=== PATIENT | male | born 1945 | race Caucasian/White ===

== ENCOUNTER → 2016-08-06 | Outpatient (CLI) | payer OTHER ==
[~2016-08-06] MED LIST: ALDACTONE25 MG PO; ALLER-EASE180 MG PO; CLOTRIM ANTIFUN15 GM TP; CLOTRIMAZOLE10 MG MM; COMBIVENT RESPIM4 GM INH; COQ-10100 MG PO; COREG25 MG PO; DIFLUCAN100 MG PO; FLOMAX0.4 MG PO; FORTAMET1000 MG PO; GLUCOSAMINE-MS1 EAC2 PO; IBUPROFEN 200200 M1 PO; KLOR-CON 1010 MEQ PO; KRILL OIL 3001 EACH PO; LEVEMIR SUBQ; LIPITOR40 MG PO; MAGOX 400400 MG PO; NAPROSYN500 MG PO; NOVOLOG100 UNIT/M SUBQ; OMEPRAZOLE40 MG PO; PHENAZOPYRIDIN200 M2 PO; PROSCAR 5MG TABL5 MG PO; QUINAPRIL-HCTZ1 EAC1 PO; RESTORIL30 MG PO; SYMBICORT160 MCG/4. INH; TESTOSTERON100 MG/ML IM; TORSEMIDE5 MG PO; UNICOMPLEX M TA1 TA1 PO; VENTOLIN HFA 1818 GM INH; VITAMIN B12-FO1 EAC1 PO; VITAMIN D2000 UNIT PO; VITAMINC500 PO; XARELTO10 MG PO; XERALTO PO
== END ==
LOC: RAD 10:45
DX: R06.02 Shortness of breath (principal); R07.9 Chest pain, unspecified; R52 Pain, unspecified; R53.83 Other fatigue; R73.9 Hyperglycemia, unspecified

== ENCOUNTER → 2017-07-13 | Outpatient (CLI) | payer OTHER ==
[~2017-07-13] MED LIST changes: +ACCURETIC 20-11 EACH PO; +ALL DAY ALLERGY10 M3 PO; +CLOTRIMAZOLE 1%15 G1 TOP; +COREG12.5 MG PO; +CRANBERRY400 MG PO; +GLUCOSAMINE CH1 EAC2 PO; +HUMALOG100 UNIT/1 SUBQ; +IRON325 PO; +KRILL OIL 1,001 EAC1 PO; +LIVALO4 MG PO; +LOPERAMIDE 2 MG2 M1 PO; +MELATONIN 10 M1 EACH PO; +NEURONTIN 300300 M1 PO; +RESTASIS1 EACH OPHTHALMIC; +SIMETHICON CHEW80 M1 PO; +STIOLTO RESPIMAT4 GM INH; +VITAMIN B122500 MCG PO; +VITAMIN D2000 UNI1 PO; +VITAMIN D3400 UNIT PO; +XARELTO20 MG PO
== END ==
LOC: RAD 12:21
DX: J44.9 Chronic obstructive pulmonary disease, unspecified (principal)

== ENCOUNTER → 2017-08-18 | Outpatient (CLI) | payer OTHER ==
[~2017-08-18] VITALS: Ht 175.3 cm; Wt 145.2 kg
--- NOTE | ~2017-08-18 | P ---
[facility] [place] [address] [place] [address] PROCEDURE REPORT Name: JOSE ANGEL SEGUNDO Room #: REG [facility]#: [id number] Admission: 08/18/17 Attend Phys: Jarrett Mei MD Discharge: Date of : 49 Report #: [id number] THIS REPORT FOR: //name// CC: Jd Mei BRIEF HISTORY: The patient is a 72-year-old male who uses naproxen daily as well as omeprazole along with Xarelto. He has recently had black stools and his hemoglobin 8.5 with an MCV of 69. PREOPERATIVE DIAGNOSIS: Iron deficiency anemia. POSTOPERATIVE DIAGNOSIS: Moderate diffuse gastritis with mild nodular changes in the body of the stomach. MEDICATIONS: monitored anesthesia care. SPECIMENS: 1. Small-bowel biopsy, rule out celiac disease. 2. Biopsies of gastritis. ESTIMATED BLOOD LOSS: 3 mL. PROCEDURE: EGD with biopsy. FINDINGS: Prior to sedation, the procedure of discussed with the patient as well as potential risks, benefits, and complications. He indicates he understands and desires to proceed. With the patient in left lateral decubitus position, the Concept Inboxi video endoscope was inserted in the cervical esophagus under direct vision without difficulty. Examination of this organ through its entire length revealed normal esophageal mucosa down to the squamocolumnar junction. Squamocolumnar junction was inspected and noted to be unremarkable. There were no ulcers, erosions or mucosal abnormalities or bleeding lesions. Varices were not seen. A hiatus hernia was not seen. Scope was advanced in the stomach, was examined on end view as well as retroflexed views. There was a pattern of diffuse gastritis throughout the stomach, primarily erythema. However, in spite of his use of nonsteroidals, no ulcers or erosions were seen. No bleeding lesions were seen. Vascular ectasias were not seen. There was a nodular appearance of the mucosa in the body of the stomach, which was diffuse. Overall, the stomach had a completely benign appearance. Multiple biopsies were obtained. Upon retroflexion, no mass lesions were seen. The pylorus, duodenal bulb and postbulbar sweep were all inspected and within normal limits. Due to his [address] [address] PROCEDURE REPORT Name: JOSE ANGEL SEGUNDO Room #: REG [facility]#: [id number] Admission: 08/18/17 Attend Phys: Jarrett eMi MD Discharge: Date of : 49 Report #: [id number] anemia, multiple biopsies were obtained to the small bowel. At that point, the scope was slowly withdrawn and careful circumferential views confirmed the above findings. The patient tolerated the procedure well. CONDITION OF THE PATIENT UPON DISCHARGE: Following procedure, the patient drowsy and prepared for colonoscopy. INSTRUCTIONS TO THE PATIENT AND FAMILY AT THE TIME OF DISCHARGE: We will follow up on biopsies obtained today and make further recommendations regarding his anemia. He should continue his iron. We will proceed with colonoscopy at this time for further evaluation of his iron deficiency anemia. <ELECTRONICALLY SIGNED> By: Jarrett Mei MD 08/25/17 0741 1103 1402 Jarrett Mei MD /nt
--- NOTE | ~2017-08-18 | S ---
[facility] [address] [place] [address] SURGICAL PATH RPT PROCEDURE Name: JOSE ANGEL SEGUNDO Room #: REG [facility] M..#: [id number] Admission: 08/18/17 Date of : 49 Discharge: Report #: [id number] Path Case #: [id number] PATHOLOGY REPORT COLLECTION DATE: 08/18/2017 RECEIVED DATE: 08/18/2017 SUBMITTING PHYS: Dr. Jarrett Mei OTHER PHYS: Dr. Es Al SPECIMEN(S) RECEIVED: A.Bx of small bowel B.Bx of gastritis C.Polyp at proximal ascending colon * * * * * * * * * * * * FINAL DIAGNOSIS: A. Small bowel mucosa, small bowel rule out celiac iron deficiency anemia, endoscopic biopsy: - No diagnostic abnormalities present. - Negative for villous blunting or increase in intraepithelial lymphocytes. B. Gastric mucosa, gastritis, endoscopic biopsy: - Mild reactive gastropathy. - Negative for intestinal metaplasia or atrophy. - One fragment showing changes compatible with a fundic gland polyp. - Negative for Helicobacter pylori. C. Polyp, proximal ascending, endoscopic biopsy: - Tubular adenoma. - Negative for high-grade dysplasia. COMMENT: Well controlled Helicobacter pylori immunohistochemical stain performed on block B1 - negative (IUV:pit; 08/19/2017) PATHOLOGIST: Yusra Gordon M.D. REPORT ELECTRONICALLY SIGNED BY: Yusra Gordon M.D. DATE/TIME: 08/19/2017 13:24 * * * * * * * * * * * * GROSS PATHOLOGY: A. Received in formalin labeled "Jose Angel Segundo, small bowel BX rule out celiac iron deficiency anemia" and consists of 3 soft diaz tissue fragments each averaging 0.2 cm which are entirely submitted A1 B. Received in formalin labeled "Jose Angel Segundo, biopsy of gastritis" [address] [address] SURGICAL PATH RPT PROCEDURE Name: JOSE ANGEL SEGUNDO F Room #: REG [facility]#: [id number] Admission: 08/18/17 Date of : 49 Discharge: Report #: [id number] Path Case #: [id number] and consists of 5 soft diaz tissue fragments ranging in size from 0.1 cm-0.3 cm which are entirely submitted as B1. C. Received in formalin labeled "Jose Angel Segundo, polyp at proximal ascending colon" and consists of multiple diaz red mucosal biopsies aggregating to 0.7 x 0.5 x 0.3 cm which are entirely submitted as C1. (MONIE; 08/18/2017) CLINICAL HISTORY: Anemia, iron deficiency INITIAL CPT CODE(S): A; 22526 B; 11162, 46129 C; 71136 Professional services performed by [facility] at [address], [place] [address] Technical services performed by [facility] at [address] [place] [address], [address] [address]. [facility] [address] [place] [address] PHONE: [phone] DIRECTOR: Sanchez Cueva M.D. * * * END OF REPORT * * *
--- NOTE | ~2017-08-18 | P ---
[facility] [place] [address] [place] [address] PROCEDURE REPORT Name: JOSE ANGEL SEGUNDO Room #: REG [facility]#: [id number] Admission: 08/18/17 Attend Phys: Jarrett Mei MD Discharge: Date of : 49 Report #: [id number] THIS REPORT FOR: //name// CC: Jd Mei BRIEF HISTORY: The patient is a 72-year-old male with recent findings of iron deficiency anemia. He does take Xarelto. Last colonoscopy was 4-1/2 years ago. PREOPERATIVE DIAGNOSIS: Iron deficiency anemia. POSTOPERATIVE DIAGNOSES: 1. Flat polyp, proximal ascending colon. 2. Moderate sigmoid diverticulosis coli. 3. Internal hemorrhoids. MEDICATIONS: Deep sedation with propofol per anesthesia. SPECIMEN: Proximal ascending colon polyp. ESTIMATED BLOOD LOSS: 3 mL. PROCEDURE: Colonoscopy to cecum and ileocecal valve with cold snare polypectomy. FINDINGS: Prior to propofol sedation, procedure of colonoscopy was discussed with the patient as well as potential risks and its complications. He indicates he understands and desires to proceed. With the patient in left lateral decubitus position, digital examination was completed which revealed no abnormalities. Subsequently, the Yovigo video colonoscope was introduced in the rectum, advanced under direct vision to the cecum. Done with minimal difficulty. The cecum was identified by the ileocecal valve and appendiceal orifice. I was able to advance the scope to the mouth of the ileocecal valve, we could see a villous pattern, but to looping the scope, we could not deeply intubate the terminal ileum. At that point, the scope was slowly withdrawn and careful circumferential views were obtained. Examination of the colon revealed a flat 10-12 mm polyp over the fold in the proximal ascending colon. This was removed with several passes of the cold snare and removed in a piecemeal fashion. A total polypectomy was completed. Due to the size of the defect, 2 clips were placed without difficulty with good results. The scope was withdrawn through the remainder of the colon and was within normal limits, normal vascular pattern, normal light reflex. No additional abnormalities were noted until the sigmoid colon was reached, at which point [facility] [address] [place] [address] PROCEDURE REPORT Name: JOSE ANGEL SEGUNDO Room #: REG [facility].#: [id number] Admission: 08/18/17 Attend Phys: Jarrett Mei MD Discharge: Date of : 49 Report #: [id number] moderate sigmoid diverticular disease seen without endoscopic evidence of diverticulitis. Scope was withdrawn into the rectum. No abnormalities were seen. However, upon retroflexion, small hemorrhoids were seen. Scope was withdrawn. The patient tolerated the procedure well. CONDITION OF THE PATIENT UPON DISCHARGE: Following the procedure, the patient drowsy, aroused and conversant and will be discharged home when fully ambulatory. INSTRUCTIONS TO THE PATIENT AND FAMILY AT THE TIME OF DISCHARGE: We will follow up on the path report. Due to findings of a flat polyp and history of polyps, ideally he should return in 3 years for a high risk screening colonoscopy due to his history of polyps. However, the patient has multiple comorbidities including use of supplemental oxygen 24 hours a day. I would base recommendations on the patient's overall health status at that time. Last colonoscopy was 4-1/2 years ago. Withdrawal time from the cecum, after polypectomy was 13 minutes and 6 seconds. <ELECTRONICALLY SIGNED> By: Jarrett Mei MD 08/25/17 0741 1148 1906 Jarrett Mei MD /nt
== END | disposition home or self-care (01) ==
LOC: GI 09:32
DX: D12.2 Benign neoplasm of ascending colon (principal); K57.30 Diverticulosis of large intestine without perforation or abscess without bleeding; K64.8 Other hemorrhoids; K31.9 Disease of stomach and duodenum, unspecified; K29.70 Gastritis, unspecified, without bleeding; I10 Essential (primary) hypertension; E11.9 Type 2 diabetes mellitus without complications; E78.00 Pure hypercholesterolemia, unspecified; J43.9 Emphysema, unspecified; G47.33 Obstructive sleep apnea (adult) (pediatric); K21.9 Gastro-esophageal reflux disease without esophagitis; M19.90 Unspecified osteoarthritis, unspecified site; Z87.891 Personal history of nicotine dependence; Z79.4 Long term (current) use of insulin; Z85.51 Personal history of malignant neoplasm of bladder; Z86.718 Personal history of other venous thrombosis and embolism; Z88.8 Allergy status to other drugs, medicaments and biological substances; Z98.890 Other specified postprocedural states; Z79.899 Other long term (current) drug therapy
CPT/HCPCS: 62110; 62900

== ENCOUNTER 2019-06-21 11:56 | Inpatient (IN) | payer OTHER ==
[~2019-06-21] VITALS: Ht 177.8 cm; Wt 122.1 kg
[2019-06-21] VITALS (12 sets, daily range): BP systolic 99–140; BP diastolic 45–83
[2019-06-21 12:27] LABS: BE(vivo) 3.7 mmol/L (-2 to +3); HCO3 31.9 mmol/L (22.0-26.0); PCO2 68.5 mmHg (35.0-45.0); pH 7.286 (7.360-7.450); sO2 95.5 % (92.0-98.0)
[2019-06-21 12:41] LABS: ABSOLUTE NEUTROPHILS 6.8 thou/uL (1.4-8.2); BASOPHILS 0.9 % (0.0-2.0); EOSINOPHILS 1.6 % (0.0-3.0); HEMATOCRIT 36.6 % (42.0-52.0); HEMOGLOBIN 11.2 gm/dL (14.0-18.0); LYMPHOCYTES 5.5 % (24.0-44.0); MCH 25.7 pg (26.0-34.0); MCHC 30.6 g/dL (28.0-37.0); MCV 84.1 fL (80.0-100.0); MONOCYTES 4.4 % (1.0-8.0); PLATELET COUNT 202 thou/uL (150-400); POLYS 87.6 % (36.0-66.0); RBC 4.35 mil/uL (4.50-6.00); RDW 18.5 % (10.5-14.5); WBC 7.8 thou/uL (4.0-11.0)
[2019-06-21 12:51] LABS: ANION GAP 7 mmol/L (7-16); BUN 58 mg/dL (7-18); CHLORIDE 100 mmol/L (98-107); CO2 34 mmol/L (21-32); CREATININE 2.2 mg/dL (0.7-1.3); GLUCOSE 273 mg/dL (74-106); POTASSIUM 4.4 mmol/L (3.5-5.1); SODIUM 141 mmol/L (136-145)
[2019-06-21 13:01] LABS: ALBUMIN 3.4 g/dL (3.4-5.0); SGOT 17 U/L (15-37); SGPT 19 U/L (30-65); TOTAL BILIRUBIN 0.8 mg/dL (<0.1-1.0); TOTAL PROTEIN 7.3 g/dL (6.4-8.2); TROPONIN-I <0.06 ng/mL (<0.06)
[2019-06-21 13:30] LABS: ANISOCYTOSIS 1+
[2019-06-21 13:30] LABS: HCO3 32.7 mmol/L (22.0-26.0); PCO2 65.7 mmHg (35.0-45.0); PO2 58.2 mmHg (80.0-100.0); pH 7.315 (7.360-7.450)
--- NOTE | 2019-06-21 16:19 | EKG ---
[facility] [place] [address] ELECTROCARDIOGRAM REPORT Name: JOSE ANGEL SEGUNDO Room #: 170-6 ADM IN M.R.#: [id number] Admission: 06/21/19 Attend Phys: Vishnu Graham MD Discharge: Date of : 49 Report #: [id number] THIS REPORT FOR: cc: Luis Alberto Morrison MD, Logan F. MD Couchonnal, Luis F. MD ~ THIS REPORT FOR: //name// [facility] ED Test Date: 2019-06-21 Test Time: 12:14:32 Pat Name: JOSE ANGEL SEGUNDO Department: Room: [facility] Gender: M Entry Level Sales Consultant: : 1945 Requested By: Monisha Cavazos Order Number: [id number] MD: Frandy Bains Measurements Intervals [place] Rate: 75 P: 57 AL: 186 QRS: 60 QRSD: 121 T: 157 QT: 381 QTc: 426 Interpretive Statements Sinus rhythm Probable left atrial enlargement Nonspecific intraventricular conduction delay Nonspecific T abnrm, anterolateral leads No previous ECG available for comparison Electronically Signed On 06-21-2019 16:18:15 HEALTH POLICY ANALYST by Frandy Bains [email or web address] <ELECTRONICALLY SIGNED> By: Frandy Bains MD 06/21/19 1618 1214 1214 Frandy Bains MD /EPI
--- NOTE | 2019-06-21 16:41 | NUR ---
REPORT CALLED TO ICU NURSE
--- NOTE | 2019-06-21 17:30 | NUR ---
73 Y/O MALE ADMITTED TO ICU ROOM 237 AT 1712 FROM THE ED VIA CART. STATOR PLATE WASHER PLACED ALONG WITH BP AND OE SAT MONITORING. PATIENT ASSESSED AND BATHED.
[2019-06-22] VITALS (15 sets, daily range): BP systolic 106–135; BP diastolic 48–91
[2019-06-22 00:06] LABS: GLYCOHEMOGLOBIN (HGB A1C) 7.9 % (4.8-5.6)
[2019-06-22 05:00] LABS: BE(vivo) 6.4 mmol/L (-2 to +3); HCO3 34.2 mmol/L (22.0-26.0); PO2 81.2 mmHg (80.0-100.0); pH 7.319 (7.360-7.450); sO2 94.7 % (92.0-98.0)
[2019-06-22 05:01] LABS: PCO2 68.1 mmHg (35.0-45.0)
[2019-06-22 06:53] LABS: ABSOLUTE NEUTROPHILS 6.2 thou/uL (1.4-8.2); BASOPHILS 0.2 % (0.0-2.0); HEMATOCRIT 36.2 % (42.0-52.0); LYMPHOCYTES 3.6 % (24.0-44.0); MCH 25.8 pg (26.0-34.0); MCHC 30.4 g/dL (28.0-37.0); MCV 84.9 fL (80.0-100.0); MONOCYTES 0.9 % (1.0-8.0); PLATELET COUNT 189 thou/uL (150-400); POLYS 95.3 % (36.0-66.0); RBC 4.27 mil/uL (4.50-6.00); RDW 18.8 % (10.5-14.5); WBC 6.5 thou/uL (4.0-11.0)
[2019-06-22 07:32] LABS: ALBUMIN 2.9 g/dL (3.4-5.0); ANION GAP 8 mmol/L (7-16); BUN 51 mg/dL (7-18); CALCIUM 8.8 mg/dL (8.5-10.1); CHLORIDE 102 mmol/L (98-107); CO2 36 mmol/L (21-32); CREATININE 1.7 mg/dL (0.7-1.3); GLUCOSE 236 mg/dL (74-106); MAGNESIUM 1.7 mg/dL (1.8-2.4); POTASSIUM 4.4 mmol/L (3.5-5.1); SGOT 13 U/L (15-37); SGPT 18 U/L (30-65); SODIUM 146 mmol/L (136-145); TOTAL BILIRUBIN 0.6 mg/dL (<0.1-1.0); TOTAL PROTEIN 6.8 g/dL (6.4-8.2); TROPONIN-I <0.06 ng/mL (<0.06)
--- NOTE | 2019-06-22 08:57 | NUR ---
RD consult received for diet education. Pt newly admitted, ICU setting for acute on chronic kidney injury, CHF. Extreme class III obesity with BMI 48. Large wt gain reported from 20-30 lb. On diuretic, also hx COPD with home O2, and dm. No diet ordered yet-recommend carb controlled, heart healthy. Will address any nutrition education needs at later date when pt more stable. Low nutrition risk otherwise.
[2019-06-22 09:22] LABS: ANISOCYTOSIS 2+; PLATELET ESTIMATE NORMAL
--- NOTE | 2019-06-22 10:40 | NUR ---
tried to see pt x 2, had resp MD in room and now getting echo. will cont following as needed for dc needs.
--- NOTE | 2019-06-22 12:22 | 2DMMODE ---
[facility] [place] [address] [place] [address] 2 D/M-MODE ECHOCARDIOGRAM Name: JOSE ANGEL SEGUNDO Room #: 237-P ADM IN M.R.#: [id number] Admission: 06/21/19 Attend Phys: Vishnu Graham MD Discharge: Date of : 49 Report #: [id number] THIS REPORT FOR: cc: Luis Alberto Morrison MD, Logan F. MD Lammoglia, Francisco J. MD ~ APPROVED REPORT Study performed: 06/22/2019 10:23:49 EXAM: Comprehensive 2D, Doppler, and color-flow Echocardiogram Patient Location: ICU Room #: 237 Status: routine BSA: 2.62 HR: 76 bpm BP: 112/52 mmHg Rhythm: NSR Other Information Study Quality: Adequate Indications Congestive Heart Failure COPD Diabetes Dyspnea Cardiomyopathy Hypertension/HDD 2D Dimensions RVDd: 52.27 mm IVSd: 9.50 (7-11mm) LVOT Diam: 24.11 (18-24mm) LVDd: 54.16 mm PWd: 7.81 (7-11mm) Ascending Ao: 36.40 (22-36mm) LVDs: 44.96 (25-40mm) Aortic Root: 30.95 mm IVC: 33.00 mm Volumes Left Atrial Volume (Systole) Single Plane 4CH: 82.00 mL Single Plane 2CH: 72.75 mL LA ESV Index: 32.00 mL/m2 Aortic Valve [facility] [address] [place] [address] 2 D/M-MODE ECHOCARDIOGRAM Name: JOSE ANGEL SEGUNDO Room #: 237-P [facility] IN M.R.#: [id number] Admission: 06/21/19 Attend Phys: Vishnu Graham MD Discharge: Date of : 49 Report #: [id number] AoV Peak Gerson.: 3.13 m/s AO Peak Gr.: 39.12 mmHg LVOT Max P.05 mmHg AO Mean Gr.: 23.69 mmHg LVOT Mean P.68 mmHg AO V2 Mean: 2.30 m/s LVOT Max V: 0.87 m/s AO V2 VTI: 79.45 cm LVOT Mean V: 0.59 m/s LUPE (VTI): 1.40 cm2 LVOT V1 VTI: 24.30 cm LUPE Vmax: 1.27 cm2 SV (LVOT): 110.89 mL Mitral Valve E/A Ratio: 1.2 MV Decel. Time: 336.02 ms MV E Max Gerson.: 1.33 m/s MV A Gerson.: 1.15 m/s MV PHT: 97.45 ms IVRT: 87.66 ms Pulmonary Valve PV Peak Gerson.: 1.10 m/s PV Peak Gr.: 4.80 mmHg Tricuspid Valve TR Peak Gerson.: 4.02 m/s TR Peak Gr.: 64.65 mmHg PA Pressure: 75.00 mmHg Left Ventricle Left ventricle is at the upper limits of normal. There is normal left ventricular wall thickness. Left ventricular systolic function is borderline. LVEF is 50%. The left ventricular diastolic function is normal. Right Ventricle Right ventricle is dilated. Right ventricle is hypokinetic. Atria Left atrium is at the upper limits of normal. Right atrium is dilated. Aortic Valve The aortic valve is normal in structure. Aortic valve is calcified. Trace aortic regurgitation. Moderate aortic stenosis. Mitral Valve The mitral valve is normal in structure. Mild mitral regurgitation. No evidence of mitral valve stenosis. [facility] [address] [place] [address] 2 D/M-MODE ECHOCARDIOGRAM Name: JOSE ANGEL SEGUNDO Room #: 237-P ADM IN .R.#: [id number] Admission: 06/21/19 Attend Phys: Vishnu Graham MD Discharge: Date of : 49 Report #: [id number] Tricuspid Valve The tricuspid valve is normal in structure. There is moderate tricuspid regurgitation. Estimated PAP 75 mmHg. There is severe pulmonary hypertension. Pulmonic Valve The pulmonary valve is normal in structure. Trace to mild pulmonic regurgitation. Great Vessels The aortic root is normal in size. IVC is dilated and collapses <50% with inspiration. Pericardium There is no pericardial effusion. <Conclusion> Left ventricle is at the upper limits of normal. LVEF is 50%. Right ventricle is dilated. Right ventricle is hypokinetic. Left atrium is at the upper limits of normal. Right atrium is dilated. The aortic valve is normal in structure. Aortic valve is calcified. Trace aortic regurgitation. The mitral valve is normal in structure. Mild mitral regurgitation. The tricuspid valve is normal in structure. There is moderate tricuspid regurgitation. Estimated PAP 75 mmHg. There is severe pulmonary hypertension. The pulmonary valve is normal in structure. Trace to mild pulmonic regurgitation. There is no pericardial effusion. <ELECTRONICALLY SIGNED> By: Denzel Chaudhry MD 06/22/19 1221 1221 122 Denzel Chaudhry MD /INF
--- NOTE | 2019-06-22 13:18 | NUR ---
PATIENT UNABLE TO DO VQ SCAN DUE TO OXYGEN REQUIREMENTS. WCM. PATIENT IS ON 10L HIHGFLOW NC. PATIENT IS ON 4LNC AT HOME. PATIENT NEEDS TO BE BELOW 6L NC TO COMPLETE SCAN PER RADIOLOGY.
[2019-06-22] MEDS ORDERED: NYSTATIN1 EA10 TOP (13:39)
--- NOTE | 2019-06-22 13:45 | NUR ---
cm visited with pt and tad at bedside. intro to cm, transition of care and dcp. pt is a & o x 3, pleasant and able to make his needs know. " live at [facility] in house. no steps. drive some. manage own medication. keeps track of medication on paper. have cane, walker, o2 4 L all the time and bipap at HS, o2 and bipap from [facility]. independent with adl's when feeling ok. had skilled rehab at [facility] in past"/vero. discussed during los, here though weekend. will cont following as needed for dc needs.
[2019-06-22] MEDS ORDERED: NORVASC 2.5 MG2.5 M1 PO (13:50)
[2019-06-22] MEDS ORDERED: MULTAQ400 MG PO (13:51)
[2019-06-22] MEDS ORDERED: ZETIA10 MG PO (13:58)
[2019-06-22] MEDS ORDERED: NF (14:24)
[2019-06-23] VITALS (16 sets, daily range): BP systolic 95–141; BP diastolic 48–76
[2019-06-23 04:28] LABS: ALBUMIN 2.9 g/dL (3.4-5.0); CALCIUM 8.9 mg/dL (8.5-10.1); CREATININE 1.6 mg/dL (0.7-1.3); PHOSPHORUS 3.2 mg/dL (2.5-4.9); POTASSIUM 4.3 mmol/L (3.5-5.1)
--- NOTE | 2019-06-23 07:20 | NUR ---
NO CHANGES OVERNIGHT. PT WORE BIPAP THE MAJORITY OF THE NIGHT. D/T LASIX, PT VOIDS FREQUENTLY AND IS INCONTINENT D/T INJURY. PT WAS IRRITATED WHEN HE HAD TO BE CLEANED UP DURING THE NIGHT, SINCE THE EXTERNAL CATH DEVICE DID NOT WORK. PT WAS INFORMED THAT HIS EXCORIATION IN HIS GROIN WOULD CONTINUE TO WORSEN IF HE DID NOT GET CLEANED UP. PT COOPERATED, BUT PT'S REDNESS/EXCORIATION LOOKS MORE INFLAMED D/T CONSTANT MOISTURE. OTHERWISE, PT IS PROGRESSING. WILL CONTINUE TO MONITOR.
--- NOTE | 2019-06-23 16:30 | NUR ---
ASSESSMENTS AND INTERVENTIONS DOCCUMENTED. PATIENT EDUCATED AND UPDATED ABOUT POC. PATIENT WORKING WITH PT AND SITTING IN CHAIR THROUGH THE SHIFT. NO MAJOR CHANGED. PATIENT PROGRESSING TOWARDS GOALS EVIDENCE BY BEING DOWN GRADED TO MED SURG TELE STATUS.
--- NOTE | 2019-06-23 19:27 | NUR ---
PT. ARRIVED AT FLOOR CLOSE TO 1800; PT. AOX4; NO C/O PAIN; PM MEDICATIONS GIVEN; ATE AROUND 75%; EDUCATED ABOUT FLUID RESTRICTION; STAnthony UNDERSTANDING; ON 8L; ASSESSMENT CHARGED; FOLLOWING POC; PASSED ON REPORT;
--- NOTE | 2019-06-24 02:54 | NUR ---
ASSESSMENTS CHARTED, MEDS GIVEN CHARTED. PATIENT HAD TRANSFERED FROM ICU PRIOR TO SHIFT CHANGE. PATIENT SITTING IN RECLINER AT START OF SHIFT. ALERT AND ORIENTED, SINUS RHYTHM ON TELEMETRY EDEMA TO BILATERAL LOWER EXTREMITIES. ON HIGH FLOW NASAL CANNULA AT 8 LITERS, NORMALLY ON 4 LITERS AT HOME. BIPAP AT NIGHT WITH OXYGEN BLEED IN. PATIENT ON LASIX THERAPY. FEMALE EXTERNAL CATHETER USED AT NIGHT. ACHS ON HIGH SSI. BG WAS 403 AT HS, RETESTED TO 354. DOSED CHARTED. ASSIST X 1 FROM CHAIR TO BED. FALL PRECAUTIONS IN PLACE. SKIN FOLDS ARE EXCORIATED NYSTATIN POWDER ORDERED. DENIES PAIN. PLAN OF CARE TO CONTINUE TREATMENTS TO IMPROVE RESPIRATIONS.
[2019-06-24 05:02] VITALS: BP 142/61
[2019-06-24 05:56] LABS: ALBUMIN 3.1 g/dL (3.4-5.0); CALCIUM 9.4 mg/dL (8.5-10.1); CREATININE 1.4 mg/dL (0.7-1.3); PHOSPHORUS 2.8 mg/dL (2.5-4.9)
[2019-06-24 08:15] VITALS: BP 148/73
[2019-06-24 16:15] VITALS: BP 137/65
--- NOTE | 2019-06-24 17:20 | NUR ---
RECEIVED PT'S CARE AROUND 0710; PT. ON BED; AOX4; DURING AM ASSESSMENT PT. REQUESTED TO MOVE TO CHAIR; MOVED TO CHAIR; SOB WITH EXERTION; BS ON THE 300s; PHYSICIAN NOTIFIED; DURING LUNCH PT. HAD 25%; INSULIN GIVEN PER SLIDING SCALE; ROLLER MACHINE OPERATOR NOTIFIED; ORDERS ON PLACE; ASSESSMENT CHARDED FOLLOWING POC; WILL PASSED ON REPORT;
[2019-06-24 20:00] VITALS: BP 139/62
[2019-06-25 05:01] VITALS: BP 139/55
[2019-06-25 06:38] LABS: ALBUMIN 3.2 g/dL (3.4-5.0); CALCIUM 9.7 mg/dL (8.5-10.1); CREATININE 1.5 mg/dL (0.7-1.3); POTASSIUM 3.7 mmol/L (3.5-5.1)
[2019-06-25 07:50] VITALS: BP 148/82
--- NOTE | 2019-06-25 09:13 | HC ---
[facility] [place] [address] [place] [address] CONSULTATION Name: JOSE ANGEL SEGUNDO Room #: 205-P ADM IN M.R.#: [id number] Admission: 06/21/19 Attend Phys: Vishnu Graham MD Discharge: Date of : 49 Report #: [id number] THIS REPORT FOR: cc: Luis Alberto Morrison MD, Logan F. MD Al-Mubaslat, Ahmad MD ~ CC: Dr. Augustina Varela DATE OF SERVICE: 06/24/2019 ENDOCRINE CONSULTATION NOTE CONSULTING PHYSICIAN: Dr. Vishnu Graham. PRIMARY CARE PHYSICIAN: Dr. Luis Alberto Morrison. REASON FOR CONSULTATION: Uncontrolled type 2 diabetes mellitus, severe hyperglycemia. HISTORY OF PRESENT ILLNESS: This is a 73-year-old male patient whose medical background is significant for multiple medical issues including type 2 diabetes mellitus, hypertension, hyperlipidemia, COPD, congestive heart failure. The patient presented to the ER on 06/21/2019 with complaints of progressive shortness of breath, fluid retention and weight gain. He was admitted for further care and monitoring for the primary issues with COPD exacerbation, decompensated heart failure and respiratory failure. The patient has had type 2 diabetes mellitus for over 10 years. He follows with Dr. Jackman at [facility] and is maintained on a regimen of Humulin U-500 at a dose of 55 units with breakfast, 45 units with lunch and 25 units with dinner, in addition to metformin 1000 mg b.i.d. He notes that his blood glucose values have been well controlled on this regimen with most lying in the low to mid 100 mg/dL range, but with occasional hypoglycemia, both in the nocturnal and fasting setting typically mild to moderate. He has been undergoing active therapeutic changes with Dr. Jackman in this regard. The patient is not aware of issues pertaining to diabetic retinopathy or coronary artery disease, but apparently has an element of chronic kidney disease. He also is known to have diabetic peripheral neuropathy and is maintained on gabapentin 300 mg at bedtime. The patient is also known to have hyperlipidemia and is maintained on atorvastatin 40 mg at bedtime. He is known to have hypertension and is maintained on Accuretic 20/12.5 mg b.i.d., carvedilol 25 mg b.i.d. and does not recall issues or major difficulties controlling his blood [address] [address] CONSULTATION Name: JOSE ANGEL SEGUNDO Room #: 205-P [facility] IN M.R.#: [id number] Admission: 06/21/19 Attend Phys: Vishnu Graham MD Discharge: Date of : 47 Report #: [id number]. REVIEW OF SYSTEMS: CONSTITUTIONAL: Fatigue, tiredness, but not fever or chills. The patient has gained weight as he retained fluids over the several days preceding his presentation. HEENT: Negative for sinus pain, ear drainage. PULMONARY: Noted for shortness of breath at rest and on exertion, cough, but not hemoptysis. CARDIAC: Fluid retention, leg edema, dyspnea on exertion, orthopnea, but no chest pain, palpitations, syncope or presyncope. GASTROINTESTINAL: Abdominal distention, abdominal discomfort, occasional nausea, but not vomiting, no major changes in bowel movement frequency. NEUROLOGY: Baseline peripheral diabetic neuropathy. No loss of consciousness, seizure activity. SKIN: Stasis dermatitis, ingrowing toenail affecting his right big toe, but no ulceration, rash, or major itch issues. PSYCHIATRIC: Negative for delusions or hallucinations. Has been a bit forgetful. Otherwise, review of system is noncontributory other than those mentioned in HPI. PAST MEDICAL HISTORY: 1. Type 2 diabetes mellitus. 2. Peripheral diabetic neuropathy. 3. Chronic kidney disease. 4. Obesity. 5. COPD. 6. CHF. 7. Hypertension. 8. Hyperlipidemia. 9. Osteoarthritis. 10. Obstructive sleep apnea. 11. History of DVT. 12. Asthma. 13. GERD. 14. Cardiomyopathy. 15. Anemia. 16. History of bladder cancer, status post radiation and chemotherapy. 17. Seasonal allergies. ACTIVE OUTPATIENT MEDICATIONS: Humulin U-500 55 units before breakfast, 45 units before lunch, 25 units before dinner, metformin 1000 mg b.i.d., atorvastatin 40 mg daily, albuterol 1-2 puffs q.i.d. p.r.n., asthma, omeprazole b.i.d., spironolactone 25 mg daily, vitamin C 500 mg daily, cetirizine 10 mg daily, vitamin D3 2000 units daily, cyanocobalamin 2500 mcg daily, Imodium 2 mg p.r.n., mag oxide 400 mg daily, melatonin at bedtime, KCl 10 mEq daily, [address] [address] CONSULTATION Name: JOSE ANGEL SEGUNDO Room #: 205-P [facility] IN M.R.#: [id number] Admission: 06/21/19 Attend Phys: Vishnu Graham MD Discharge: Date of : 47 Report #: [id number] Accuretic 20/12.5 mg b.i.d., carvedilol 25 mg b.i.d., Xarelto 20 mg with dinner, torsemide 50 mg daily, gabapentin 300 mg at bedtime, ferrous sulfate 325 mg daily, naproxen 500 mg b.i.d. ALLERGIES: BENADRYL, CRESTOR. FAMILY HISTORY: Diabetes. SOCIAL HISTORY: Quit smoking many years ago. Drinks only seldom. Lives with his . PHYSICAL EXAMINATION: GENERAL: Pleasant male patient who is not in apparent pain or distress. VITAL SIGNS: Blood pressure is 148/73 mmHg, heart rate is 87 beats per minute, respiration 18 per minute, temperature is 36.7 degrees. CONSTITUTIONAL: He is sitting upright in bed, appears comfortable, not in apparent distress. HEENT: Anicteric sclerae. Intact extraocular motions. NECK: Supple, without JVD. No lymphadenopathy, no thyromegaly. CHEST: Noted for moderate entry bilaterally with scattered rales, rhonchi. HEART: Regular rate and rhythm without murmurs or gallops. ABDOMEN: Obese, somewhat tense, but no guarding. Active bowel sounds. EXTREMITIES: Lower extremity exam, +1 ankle edema. Stasis dermatitis, scaling dry skin over both feet. Palpable pedal pulses. Ingrowing toenail over the right big toe. Sensation to light touch is slightly diminished. NEUROLOGIC: Awake, alert and oriented to time, place and person. He had what appears to be a slight difficulty recalling details and forming sentences, but was able to answer most of my questions appropriately. Slightly diminished sensation to light touch over both lower extremities. PSYCHIATRIC: Pleasant, interactive. Normal mood and affect. As noted above, he had slight difficulty recalling events details and occasionally forming sentences, but was appropriate for the most part. LABORATORY RESULTS: Blood glucose value on arrival was 157, but then over the past 24 hours, he has had blood glucose values consistently between 300 and 450 mg/dL. Otherwise, sodium 143, potassium 4.0, chloride 101, CO2 of 39, anion gap 3, BUN 45, creatinine 1.4. He had a baseline creatinine of 1.0-1.4. Total bilirubin 0.6, calcium 9.4, phosphorus 2.8, magnesium 1.7, alkaline phosphatase 56, ALT 18, total protein 6.8, albumin 3.1, EGFR 50. Troponin negative. BNP 6553. INR 3.0. White blood count 6.5, hemoglobin 11, hematocrit 36.2, platelets 189. Hemoglobin A1c 7.9. ASSESSMENT AND PLAN: 1. Type 2 diabetes mellitus. The patient has an outpatient regimen that is primarily comprised of Humulin U-500 with a high insulin requirement of a total [address] [address] CONSULTATION Name: JOSE ANGEL SEGUNDO Room #: 205-P ADM IN ..#: [id number] Admission: 06/21/19 Attend Phys: Vishnu Graham MD Discharge: Date of : 47 Report #: [id number] daily dose of 125 units daily. He is also on metformin therapy. His baseline control is reportedly adequate with occasional hypoglycemia and his hemoglobin A1c reflects an outlook that is just slightly above the conventional target of 7%, although the current target might be appropriate for him given his age and propensity for hypoglycemia. Since arrival to the hospital, the patient has been managed aggressively for the issues of decompensated heart failure and COPD and his management included the utilization of high dose intravenous glucocorticoids in the form of Solu-Medrol 62.5 mg q. 8 hours IV. With this, the patient developed severe hyperglycemia. Moreover, he has been primarily managed with supplemental scale and Lantus insulin was added to his regimen just last night at a dose of 20 units. I discussed the current outlook with the patient at length and I explained the need to cater for both his basal and prandial needs in order to achieve better control. At the present time, I will start the patient with a combination of Lantus insulin 25 units b.i.d., and Humalog insulin 18 units t.i.d. a.c., in addition to moderate intensity Humalog supplemental scale coverage. We will continue to monitor his blood glucose values a.c. and at bedtime, so as to adjust his regimen accordingly. Also, I would like to resume low-dose metformin therapy at 500 mg b.i.d. as his kidney function is permissive of that and I do not see that he received contrasted studies anytime recently. 2. Renal insufficiency. The patient seems to have baseline kidney function, studies are consistent with stage 3A kidney disease. While he had a slight acute worsening, it seems that he is slowly returning to his baseline at this point. 2. Hyperlipidemia. The patient is known to have hyperlipidemia and is currently on atorvastatin therapy as an outpatient. This could be resumed upon discharge. 3. Hypertension. The patient's level of blood pressure control is adequate on the current regimen of Zaroxolyn and carvedilol, he is to continue with the same. 4. Chronic obstructive pulmonary disease. The patient is demonstrating gradual improvement and states that he feels considerably better since coming in on the current combination of intravenous glucocorticoids and bronchodilators. The pulmonary team is actively following. 5. Congestive heart failure. The patient presented with decompensated heart failure and has been able to diurese successfully and is feeling considerably better. Cardiology is following. I have reviewed the patient's clinical care notes, laboratory data, and radiologic studies as well as other pertinent clinical information for over 35 minutes. I certainly appreciate this consultation by Dr. Graham. <ELECTRONICALLY SIGNED> By: Bharati Barrientos MD 06/25/19 0913 [id number] [id number] Bharati Barrientos MD /katherine
[2019-06-25 15:20] VITALS: BP 129/81
--- NOTE | 2019-06-25 18:27 | NUR ---
PT UP TO CHAIR MOST OF THE DAY, DIURESING WELL. GOOD PO INTAKE AND PT AWARE OF FLUID RESTRICTION. PT PROGRESSING TOWARDS GOALS.
[2019-06-25 19:30] VITALS: BP 110/69
[2019-06-26 01:00] VITALS: BP 128/71
[2019-06-26 05:24] VITALS: BP 136/78
[2019-06-26 05:53] LABS: ALBUMIN 3.5 g/dL (3.4-5.0); CALCIUM 9.6 mg/dL (8.5-10.1); CREATININE 1.7 mg/dL (0.7-1.3); PHOSPHORUS 4.2 mg/dL (2.5-4.9); POTASSIUM 3.4 mmol/L (3.5-5.1)
--- NOTE | 2019-06-26 07:53 | NUR ---
ASSESSMENTS CHARTED, MEDS GIVEN CHARTED. PATIENT STARTED SHIFT IN SINUS RHYTHM, BUT WENT INTO AFIB EARLY IN THE EVENING. SPOKE WITH DR. MCKEON STARTED CARDIZEM DRIP WITH BOLUS TO KEEP HIM IN LOW 100'S. ON 6 LITERS DURING DAY AND BIPAP AT NIGHT. USES URINAL WHILE IN CHAIR AND FEMALE EXTERNAL CATHETER DURING NIGHT. ACHS ON SSI, 278 AT HS. PANUS WITH YEAST RASH, REDNESS TO BACK SIDE, BARRIER CREAM APPLIED. PLAN OF CARE TO CONTINUE DIURESING, ANTIBIOTIC TREATMENTS.
[2019-06-26 08:00] VITALS: BP 122/76
--- NOTE | 2019-06-26 14:27 | NUR ---
Nutrition: pt admitted with increased SOB and weight gain, CHF. Acute on chronic kidney disease. Weights down ~30# from admit with diuresis. had previously reported a 20-30# weight gain since last month. Hx DM, CKD, CHF, COPD. A1C 7.9. BG 149-331. Steroids. Eats well on Carb control/2 gm Na diet. Attempted to meet with this afternoon for low sodium diet education but she had already left so will followup 06/27 a bit earlier in day. Pt voiced no education needs related to DM. Followup 06/27
--- NOTE | 2019-06-26 15:55 | NUR ---
met with patient and reviewed need for post acute care. Sp with and alerted dc as early as tomorrow and discussed post acute care. Patient interested in [facility].
[2019-06-26 16:00] VITALS: BP 103/57
--- NOTE | 2019-06-26 16:51 | NUR ---
FAXED REFERRAL TO [facility] SPOKE WITH RADHA IN ADM SHE RECEIVED REFERRAL AND CAN ACCEPT FOR SKILLED STAY. DP TO FOLLOW.
[2019-06-26 21:49] VITALS: BP 120/71
[2019-06-27 01:18] VITALS: BP 147/76
--- NOTE | 2019-06-27 03:44 | NUR ---
PT TACHY ON THE MONITOR AT THE TIME OF ARRIVAL. AMIODARONE DRIP STARTED AT 1935. PHARMACY NOTIFIED OF THE INFUSION RATE TO BE ADJUSTED WITH TIME. PT HAS NO CHEST PAIN, OR NAUSEA REPORTED. VSS. HEART RATE CURRENTLY STABLE. BIPAP OVER NIGHT. WILL FOLLOW POC.
[2019-06-27 04:33] VITALS: BP 140/77
[2019-06-27 05:47] LABS: HEMATOCRIT 43.7 % (42.0-52.0); HEMOGLOBIN 13.8 gm/dL (14.0-18.0); MCH 25.9 pg (26.0-34.0); MCHC 31.7 g/dL (28.0-37.0); MCV 81.8 fL (80.0-100.0); RBC 5.35 mil/uL (4.50-6.00); RDW 17.6 % (10.5-14.5); WBC 8.8 thou/uL (4.0-11.0)
[2019-06-27 05:59] LABS: ALBUMIN 3.2 g/dL (3.4-5.0); CALCIUM 9.3 mg/dL (8.5-10.1); CREATININE 2.1 mg/dL (0.7-1.3); MAGNESIUM 2.3 mg/dL (1.8-2.4); PHOSPHORUS 5.1 mg/dL (2.5-4.9)
[2019-06-27 06:18] LABS: POTASSIUM 2.7 mmol/L (3.5-5.1)
[2019-06-27 07:30] VITALS: BP 111/68
[2019-06-27 11:30] VITALS: BP 121/89
--- NOTE | 2019-06-27 13:55 | NUR ---
patient not stable for dc. [facility] accepting once stable and they rec auth. Updated .
[2019-06-27 17:00] VITALS: BP 108/78
--- NOTE | 2019-06-27 18:45 | NUR ---
ASSUMED CARE AT SHIFT CHANGE, ALERT AND ORIENTED X4 AND FORGETFUL, REMAINS ON AMIO GTT AT 0.5, AND TOLERATING WELL. VSS AND AFIB ON MONITOR. PROGRESSING TOWARDS GOALS, AND WILL CONTINUE WITH POC.
[2019-06-27 20:57] VITALS: BP 115/76
--- NOTE | 2019-06-28 04:28 | NUR ---
NO EVENT OVER NIGHT. PT ALERT AND ORIENTED. NO CHEST PAIN, NAUSEA OR VOMITING. MAINTAINED ON AMIO DRIP. VSS. CONTINUE TO PROGRESS TOWARDS GOAL.
[2019-06-28 04:41] VITALS: BP 137/69
[2019-06-28 06:08] LABS: BASOPHILS 0.1 % (0.0-2.0); EOSINOPHILS 3.2 % (0.0-3.0); HEMATOCRIT 43.2 % (42.0-52.0); HEMOGLOBIN 13.6 gm/dL (14.0-18.0); LYMPHOCYTES 11.2 % (24.0-44.0); MCH 25.6 pg (26.0-34.0); MCHC 31.4 g/dL (28.0-37.0); MCV 81.6 fL (80.0-100.0); PLATELET COUNT 220 thou/uL (150-400); POLYS 76.5 % (36.0-66.0); RBC 5.29 mil/uL (4.50-6.00); RDW 17.6 % (10.5-14.5); WBC 9.2 thou/uL (4.0-11.0)
[2019-06-28 06:28] LABS: CALCIUM 8.9 mg/dL (8.5-10.1); MAGNESIUM 2.2 mg/dL (1.8-2.4); PHOSPHORUS 3.5 mg/dL (2.5-4.9); POTASSIUM 3.1 mmol/L (3.5-5.1)
[2019-06-28 07:30] VITALS: BP 96/69
[2019-06-28 11:30] VITALS: BP 100/64
--- NOTE | 2019-06-28 15:59 | NUR ---
Update given to Jacki in admissions at [facility]. 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 Possible weekend dc to snf if medically cleared. [facility] Sn[facility] can accept admissions over the weekend if needed. Dc sales planner to fax them a clinical update. They will need the pt to bring in his bipap from home. Will follow.
[2019-06-28 16:30] VITALS: BP 115/77
--- NOTE | 2019-06-28 17:23 | NUR ---
FAXED CLINICAL UPDATE TO [facility] RECEIVED CONFIRMATION.
--- NOTE | 2019-06-28 18:15 | NUR ---
ASSUMED CARE 0700. ALERT X4, DENIES CHEST PAIN, SOB WITH ADL'S, ON 4 L NASAL CANNULA, AFIB ON TELE. NPO TONIGHT FOR HEART CATH IN AM. CONTINENT WITH URINAL. UP WITH ASSISTANCE. BS MANAGED WITH ENDOCRINE PHYSICIAN. FAMILY AWARE OF PROCEDURE IN AM. PATIENT PREFERS TO SIT IN CHAIR. CHAIR ALARM ON. CALLS FOR ASSISTANCE.
[2019-06-28 20:38] VITALS: BP 102/83
[2019-06-29] VITALS (15 sets, daily range): BP systolic 101–152; BP diastolic 69–127
[2019-06-29 04:13] LABS: ALBUMIN 3.2 g/dL (3.4-5.0); CALCIUM 8.4 mg/dL (8.5-10.1); CREATININE 1.6 mg/dL (0.7-1.3); PHOSPHORUS 3.1 mg/dL (2.5-4.9); POTASSIUM 3.5 mmol/L (3.5-5.1)
--- NOTE | 2019-06-29 05:24 | NUR ---
ASSESSMENT: PT REMAIN ALERT AND ORIENT TIMES THREE. SEEMS DEPRESSED WITH A FLAT AFFECT. STATES THAT HE HAD NOT BEEN TOLD "WHY" HE GOING FOR A CATH. CONSENT ON FRONT OF CHART, UNSIGNED. SAT UP IN CHAIR UNTIL MN, NPO AT MN. VSS, AFEBRILE. SR-OCCASIONAL AFIB PER MONITOR. AMIODARONE GTT INFUSING AT 16.7 ML. TOLERATED BIPAP DURING THE NIGHT. VOIDING PER [id number]. ORDER PENDING PER DR. STACY FOR VIAGRA...THUS APPROVAL FROM CARDIOLOGY. WILL CONTINUE TO MONITOR.
--- NOTE | 2019-06-29 14:24 | HC ---
[facility] [place] [address] [place] [address] CONSULTATION Name: JOSE ANGEL SEGUNDO Room #: 205-P ADM IN M.R.#: [id number] Admission: 06/21/19 Attend Phys: Vishnu Graham MD Discharge: Date of : 47 Report #: [id number] THIS REPORT FOR: cc: Luis Alberto Morrison MD, Logan F. MD Al-Absi, Ahmed I. MD ~ CC: Luis Alberto Varela DATE OF SERVICE: 06/22/2019 REASON FOR THE CONSULTATION: Elevated creatinine. REASON FOR THE PRESENTATION: Shortness of breath. HISTORY OF PRESENT ILLNESS: A 73-year-old with extensive past medical history including hypertension, diabetes mellitus, and DVTs. He presented complaining of shortness of breath. The patient has had repeated hospitalizations in different hospitals including at [facility]. He was managed for what was described as fluid retention, decompensated heart failure, and acute kidney injury. gave a history that he was on high doses of torsemide and dose had been reduced by his scrap crusher. The patient is not really sure about the name of his scrap crusher. Ever since the discharge, the patient reported that he has not been able to keep the fluid off and he has gained about 20-30 pounds since his discharge. The patient is known to have chronic DVTs with what seems to be chronic venous stasis changes. He is also maintained on chronic anticoagulation for his AFib. Despite denying that he is taking any nonsteroidal anti-inflammatory medications, naproxen was listed as a medication that the patient has been taking on a daily basis twice a day. The patient's creatinine on presentation was mildly elevated at 2.2 and this has trended down to 1.7. The patient is morbidly obese with what seems to be Pickwickian like criteria. PAST MEDICAL HISTORY: Extensive and includes the followin. Diabetes mellitus. 2. Hypertension. 3. Chronic kidney disease. 4. Chronic obstructive pulmonary disease. 5. Cardiomyopathy. 6. Deep venous thrombosis. 7. Bladder cancer. 8. Oxygen dependence. 9. Osteoarthritis. 10. Obstructive sleep apnea. [facility] [address] [place] [address] CONSULTATION Name: JOSE ANGEL SEGUNDO Room #: 205-P [facility] IN ..#: [id number] Admission: 06/21/19 Attend Phys: Vishnu Graham MD Discharge: Date of : 47 Report #: [id number] MEDICATIONS: 1. Naproxen. 2. Gabapentin. 3. Torsemide. 4. Carvedilol. 5. Quinapril. 6. Insulin. 7. Spironolactone. 8. Metformin. 9. Ascorbic acid. 10. Atorvastatin. ALLERGIES: BENADRYL AND CRESTOR. SOCIAL HISTORY: Denies drug or alcohol abuse. REVIEW OF SYSTEMS: GENERAL: No fever or chills. CARDIOVASCULAR: As per the history of present illness. PULMONARY: As per the history of present illness. GASTROINTESTINAL: No nausea or vomiting. GENITOURINARY: No frequency or urgency. MUSCULOSKELETAL: Lower extremity discoloration related to his venous stasis. NEUROLOGICAL: No headache, no dizziness. PHYSICAL EXAMINATION: GENERAL: He is on his CPAP machine. Blood pressure is 128/67, temperature is 36.3. HEAD AND NECK: No jugular venous distention. CHEST: Decreased air entry bilaterally with occasional crackles. CARDIOVASCULAR: Distant S1, S2. No rub detected. ABDOMEN: Extensive obesity with abdominal wall edema. LOWER EXTREMITIES: Extensive bilateral lower extremity edema. LABORATORY DATA: Reviewed. pH 7.31, pCO2 of 68. Sodium is 146, BUN is 51, and creatinine is 1.7. ASSESSMENT, IMPRESSION AND PLAN: 1. Acute kidney injury with chronic kidney disease. 2. Acute respiratory failure. 3. Anasarca due to cor pulmonale. 4. Not really sure about the patient's baseline creatinine and who is his scrap crusher. We will try to obtain the records from [facility]. 5. From the renal perspective, the patient's creatinine seems to be trending down and he will need aggressive diuresis given his significant anasarca; however, with his obstructive sleep apnea and cor pulmonale, he is at high risk [address] [place] [address] CONSULTATION Name: JOSE ANGEL SEGUNDO Room #: 205-P ADM IN M.R.#: [id number] Admission: 06/21/19 Attend Phys: Vishnu Graham MD Discharge: Date of : 47 Report #: [id number] of decompensations with the diuresis and we will have to pay a close attention to his renal parameters. 6. Unfortunately, with the patient's morbid obesity, obstructive sleep apnea, he will have significant left over edema that will not go away, given his significant venous stasis changes. <ELECTRONICALLY SIGNED> By: Yari Adhikari MD 06/29/19 1424 0806 [id number] Yari Adhikari MD /nt
--- NOTE | 2019-06-29 15:58 | NUR ---
[facility] HAS SUBMITTED FOR SNF AUTH FOR EARLY NEXT WEEK. PT WILL NEED TO BRING HIS HOME BIPAP WITH HIM. PT'S UPDATED AT BEDSIDE TODAY. PT HAVING BP ISSUES THIS AFTERNOON. WILL F/U TUESDAY AND TOUCH BASE WITH THE SNF.
--- NOTE | 2019-06-29 18:52 | NUR ---
PT CARE ASSUMED APPROXIMATELY 0700. PT ASSESSMENTS CHARTED. PT MEDICATION CHARTED. PT TO STATE DIRECTOR RETURNED APPROXIMATELY 1515. RIGHT GROIN VENOUS SITE C/D/I NO HEMATOMA.
[2019-06-30] VITALS (8 sets, daily range): BP systolic 91–112; BP diastolic 54–79
--- NOTE | 2019-06-30 05:16 | NUR ---
NO OVERNIGHT EVENTS. PT. RESTED WELL FOR MOST OF NIGHT. PT. ABLE TO TRANSFER FROM BEDSIDE TO CHAIR WITH STAND BY ASSIST AND GAIT BELT. ONLY STAYED ON BIPAP WHEN ASLEEP FROM 10-4. ASSESSMENTS CHARTED. CONTINUE TO FOLLOW POC. PT. PROGGRESSING TOWARDS GOALS. WILL CONTINUE TO MONITOR.
[2019-06-30 07:47] LABS: ALBUMIN 3.2 g/dL (3.4-5.0); CALCIUM 9.3 mg/dL (8.5-10.1); CREATININE 1.8 mg/dL (0.7-1.3); POTASSIUM 3.5 mmol/L (3.5-5.1)
--- NOTE | 2019-06-30 16:29 | NUR ---
PT CARE ASSUMED APPROXIMATELY 0700. PT ASSESSMENTS CHARTED. PT MEDICATIONS CHARTED. PT INSULIN GLARGINE AND INSULIN LISPRO LEVELS INCREASED PER DR ORDER. PT DENIES PAIN. VITAL SIGNS STABLE.
[2019-07-01 00:07] VITALS: BP 124/66
[2019-07-01 04:20] VITALS: BP 129/64
[2019-07-01 05:48] LABS: ALBUMIN 2.8 g/dL (3.4-5.0); CALCIUM 8.4 mg/dL (8.5-10.1); CREATININE 1.6 mg/dL (0.7-1.3); PHOSPHORUS 3.3 mg/dL (2.5-4.9); POTASSIUM 3.3 mmol/L (3.5-5.1)
--- NOTE | 2019-07-01 06:20 | NUR ---
ASSUMED CARE OF PATIENT AT 1900. ASSESSMENT CHARTED. TELE STRIPS PRINTED AND PLACED IN CHART. PATIENT ON AMIODARONE DRIP AND CONTINUES IN SINUS RHYTHM WITH A HEART RATE IN THE 60'S. PATIENT TRANSFERRING A STAND BY ASSIST FROM THE BED TO THE CHAIR AND BACK AGAIN. DENIES ANY CHEST PAIN OR SHORTNESS OF AIR. PATIENT USED BIPAP WHILE SLEEPING. DENIES ANY CONCERNS. CONTINUE WITH POC.
[2019-07-01 08:01] VITALS: BP 113/64
[2019-07-01 08:20] VITALS: BP 113/64
[2019-07-01 17:13] VITALS: BP 93/50
--- NOTE | 2019-07-01 17:37 | NUR ---
PT CARE ASSUMED APPROXIMATELY 0700. PT ASSESSMENT CHARTED. PT MEDICATION CHARTED. PT HAD A BM UTILIZING BSC, ASSIST X 1 NEEDED. PT DENIES PAIN. AMIODARONE RUNNING 0.5 MG/MIN.
[2019-07-01 20:10] VITALS: BP 111/58
--- NOTE | 2019-07-02 02:34 | NUR ---
ASSESSMENT: PT REMAIN ALERT AND ORIENT TIMES THREE. UP IN CHAIR AT CHANGE OF SHIFT UNTIL MN. VSS, AFEBRILE. SR PER MONITOR. HX OF AFIB. AMIO GTT INFUSING AT 0.5MG/HR. TOLERATING BIPAP AT NOC. SLOW PROGRESS, WILL CONTINUE TO MONITOR.
[2019-07-02 04:45] VITALS: BP 123/70
[2019-07-02 07:50] VITALS: BP 124/65
[2019-07-02 07:58] VITALS: BP 124/65
[2019-07-02 09:01] LABS: CALCIUM 9.7 mg/dL (8.5-10.1); CREATININE 1.7 mg/dL (0.7-1.3)
[2019-07-02 09:04] LABS: POTASSIUM 3.8 mmol/L (3.5-5.1)
[2019-07-02 09:08] VITALS: BP 124/65
[2019-07-02] MEDS ORDERED: AUGMENTIN 875-1 EACH PO (12:08)
[2019-07-02] MEDS ORDERED: PACERONE 200 M200 M1 PO (12:11)
[2019-07-02] MEDS ORDERED: POTASSIUM20 PO (12:16)
[2019-07-02] MEDS ORDERED: TORSEMIDE20 MG PO (12:17)
[2019-07-02] MEDS ORDERED: PREDNISONE 10 M10 MG PO (12:18)
[2019-07-02] MEDS ORDERED: ELIQUIS5 MG PO (12:21)
[2019-07-02] MEDS ORDERED: SILDENAFIL20 MG PO (12:28)
[2019-07-02] MEDS ORDERED: LANTUS SUBQ (12:37)
[2019-07-02] MEDS ORDERED: HUMALOG100 UNIT/1 SUBQ (12:37)
--- NOTE | 2019-07-02 13:36 | CATHLAB ---
[facility] [place] [address] [place] [address] INVASIVE PROCEDURE REPORT Name: JOSE ANGEL SEGUNDO Room #: 205-P ADM IN M.R.#: [id number] Admission: 06/21/19 Attend Phys: Vishnu Graham MD Discharge: Date of : 47 Report #: [id number] THIS REPORT FOR: cc: Luis Alberto Morrison MD, Logan F. MD Lammoglia, Francisco J. MD ~ APPROVED REPORT Study performed: 06/29/2019 13:18:24 Patient Details Patient Status: In-Patient Room #: The patient is a 73 year-old male Event Personnel Denzel Chaudhry Ceramic Mold Designer, Colten Carvajal RTR Monitor, Jayda Robles RTR Scrub, Marcellus Ty RN, Gladis Mccrary Monitor Procedures Performed Right Heart Cath Only [id number] [facility] [address] Initial Mod Sed Same Phys/QHP Gr5y [id number] 83690 Mod Sed Same Phys/QHP Ea [id number] Hemostasis with Manual pressure Bert Access - R femoral vein, supervision of conscious sedation Indication Pulmonary hypertension Procedure Narrative The patient was brought electively to the Cardiac Catheterization Laboratory and was prepped and draped in a sterile manner. The Right Groin^ was infiltrated with 1% Lidocaine subcutaneous anesthesia. A Right Heart Catheterization was performed with a 7 Fr. Kennard-Prakash catheter and pressure were recorded. Cardiac outputs were obtained by the Thermal Dilution method. A PINNACLE 7FR Sheath #[id number] sheath was inserted into the RFV. Coronary angiography was performed using coronary diagnostic catheters. The patient tolerated the procedure well and there were no complications associated with the procedure. There was no hematoma. Intraoperative Conscious Sedation Sedation start time: 14.03 Case end Time: 14.36 Versed 2 mg [facility] [place] [address] INVASIVE PROCEDURE REPORT Name: JOSE ANGEL SEGUNDO Room #: [facility] IN [facility]#: [id number] Admission: 06/21/19 Attend Phys: Vishnu Graham MD Discharge: Date of : 47 Report #: [id number] Fluoro Time: 6.05 minutes Dose: DAP 8512.30 cGycm2 385 mGy Hemodynamics The right atrial mean pressure is 18 mmHg. The right ventricular pressure is 59/8 mmHg. The pulmonary artery pressure is 63/42 mmHg with a mean of 47 mmHg. The mean pulmonary capillary wedge pressure is 16 mmHg. The cardiac output using thermo method is 3.47 L/min. The cardiac index using thermo method is 1.27 L/min/m2. Conclusion 1. Markedly elevated pulmonary pressures consistent with former hypertension Recommendations Aggressive medical management <ELECTRONICALLY SIGNED> By: Denzel Chaudhry MD 07/02/19 1334 1334 1334 Denzel Chaudhry MD /INF
--- NOTE | 2019-07-02 14:43 | NUR ---
PT DISCHARGING TO [facility] FOR SKILLED STAY FAXED DC ORDERS/SUMMARY TO FACILITY SPOKE WITH MARLENA IN ADM SHE RECEIVED ORDERS AND ARRANGED TRANSPORT BY [facility] FOR 1600 TODAY. NOTIFIED PT'S (LAILA) OF DC AND TIME OF TRANSPORT. UNIT NOTIFIED AND CHART COPY PER US. RN TO CALL REPORT TO [phone].
--- NOTE | 2019-07-02 15:00 | NUR ---
PT CARE ASSUMED APPROXIMATELY 0700. PT ASSESSMENTS CHARTED PT MEDICATIONS CHARTED. PT AMIODARONE GTT DISCONTINUED AND PLACED ON AMIODARONE PO. PT IS BEING DISCHARGED TO [facility] AT APPROXIMATELY 1600. PT DENIES PAIN. VSS.
== END 2019-07-02 17:37 | DRG 871 ==
LOC: ER 11:56 → 2N 14:41 → EROBS 14:41 → ICU 14:41 → 2N 06-23 18:19
PROVIDERS: Hospitalist; Internal Medicine; Internal Medicine Pulmonary Disease; Nurse Practitioner Adult Health; Physician Assistant; ADMIT Internal Medicine
PROC: 5A09357 Assistance with Respiratory Ventilation, Less than 24 Consecutive Hours, Continuous Positive Airway Pressure (ICD-10-PCS; principal; 2019-06-21)
PROC: 5A09357 Assistance with Respiratory Ventilation, Less than 24 Consecutive Hours, Continuous Positive Airway Pressure (ICD-10-PCS; 2019-06-22)
PROC: 5A09357 Assistance with Respiratory Ventilation, Less than 24 Consecutive Hours, Continuous Positive Airway Pressure (ICD-10-PCS; 2019-06-23)
PROC: 5A09357 Assistance with Respiratory Ventilation, Less than 24 Consecutive Hours, Continuous Positive Airway Pressure (ICD-10-PCS; 2019-06-24)
PROC: 5A09357 Assistance with Respiratory Ventilation, Less than 24 Consecutive Hours, Continuous Positive Airway Pressure (ICD-10-PCS; 2019-06-25)
PROC: 5A09357 Assistance with Respiratory Ventilation, Less than 24 Consecutive Hours, Continuous Positive Airway Pressure (ICD-10-PCS; 2019-06-26)
PROC: 5A09357 Assistance with Respiratory Ventilation, Less than 24 Consecutive Hours, Continuous Positive Airway Pressure (ICD-10-PCS; 2019-06-27)
PROC: 5A09357 Assistance with Respiratory Ventilation, Less than 24 Consecutive Hours, Continuous Positive Airway Pressure (ICD-10-PCS; 2019-06-28)
PROC: 4A023N6 Measurement of Cardiac Sampling and Pressure, Right Heart, Percutaneous Approach (ICD-10-PCS; 2019-06-29)
PROC: B2111ZZ Fluoroscopy of Multiple Coronary Arteries using Low Osmolar Contrast (ICD-10-PCS; 2019-06-29)
PROC: 5A09357 Assistance with Respiratory Ventilation, Less than 24 Consecutive Hours, Continuous Positive Airway Pressure (ICD-10-PCS; 2019-06-29)
PROC: 5A09357 Assistance with Respiratory Ventilation, Less than 24 Consecutive Hours, Continuous Positive Airway Pressure (ICD-10-PCS; 2019-06-30)
PROC: 5A09357 Assistance with Respiratory Ventilation, Less than 24 Consecutive Hours, Continuous Positive Airway Pressure (ICD-10-PCS; 2019-07-01)
PROC: 5A09357 Assistance with Respiratory Ventilation, Less than 24 Consecutive Hours, Continuous Positive Airway Pressure (ICD-10-PCS; 2019-07-02)
DX: A41.9 Sepsis, unspecified organism (principal); J18.9 Pneumonia, unspecified organism; J96.21 Acute and chronic respiratory failure with hypoxia; J96.22 Acute and chronic respiratory failure with hypercapnia; I50.43 Acute on chronic combined systolic (congestive) and diastolic (congestive) heart failure; J44.1 Chronic obstructive pulmonary disease with (acute) exacerbation; J44.0 Chronic obstructive pulmonary disease with (acute) lower respiratory infection; I42.9 Cardiomyopathy, unspecified; N17.9 Acute kidney failure, unspecified; I13.0 Hypertensive heart and chronic kidney disease with heart failure and stage 1 through stage 4 chronic kidney disease, or unspecified chronic kidney disease; M19.90 Unspecified osteoarthritis, unspecified site; E78.5 Hyperlipidemia, unspecified; E78.00 Pure hypercholesterolemia, unspecified; E66.01 Morbid (severe) obesity due to excess calories; I11.0 Hypertensive heart disease with heart failure; E11.22 Type 2 diabetes mellitus with diabetic chronic kidney disease; N18.9 Chronic kidney disease, unspecified; D49.4 Neoplasm of unspecified behavior of bladder; G47.33 Obstructive sleep apnea (adult) (pediatric); E11.65 Type 2 diabetes mellitus with hyperglycemia; E11.42 Type 2 diabetes mellitus with diabetic polyneuropathy; D63.8 Anemia in other chronic diseases classified elsewhere; I48.0 Paroxysmal atrial fibrillation; I27.20 Pulmonary hypertension, unspecified; Z68.38 Body mass index [BMI] 38.0-38.9, adult; Z99.81 Dependence on supplemental oxygen; Z79.2 Long term (current) use of antibiotics; Z86.718 Personal history of other venous thrombosis and embolism; Z79.01 Long term (current) use of anticoagulants; Z79.84 Long term (current) use of oral hypoglycemic drugs; Z79.899 Other long term (current) drug therapy; Z88.8 Allergy status to other drugs, medicaments and biological substances; Z87.891 Personal history of nicotine dependence
CPT/HCPCS: 10078; 10081